=== PATIENT | male | born 1970 | race Caucasian/White ===

== ENCOUNTER 2018-01-31 19:07 | Emergency (ER) | payer OTHER, BC ==
[2018-01-31 19:15] VITALS: BP 156/92; PULSE 87; TEMP 99; BMI 28.5
--- NOTE | 2018-01-31 19:49 | PDOC ---
History of Present Illness - General Chief Complaint: Injury Stated Complaint: HAND INJURY Time Seen by Provider: 01/31/18 19:28 - History of Present Illness Initial Comments: Healthy 47-year-old male without any comorbidities presents for evaluation of right wrist pain. He states he was putting up a wall to wall fell on his wrist he describes a hyperextension type injury. Since the injury his wrist is been increasingly painful. He points to the radial aspect of his right wrist as the area of his discomfort pain is described as achy exacerbated with motion relieved with rest free of radiation no prior problems with the right wrist. 01/31/18 19:47 Past History - Past Medical History Allergies/Adverse Reactions: Allergies Allergy/AdvReac Type Severity Reaction Status Date / Time No Known Allergies Allergy Verified 06/16/16 10:30 Home Medications: Ambulatory Orders NK [No Known Home Medication] 01/31/18 COPD: No - Suicide/Smoking/Psychosocial Hx Smoking History: Current some day smoker Number of Cigarettes Smoked Daily: 5 Information on smoking cessation initiated: No 'Breaking Loose' booklet given: 06/19/15 Hx Alcohol Use: Yes (2x a week) Drug/Substance Use Hx: No Substance Use Type: None Review of Systems - Review of Systems Musculoskeletal: Yes: Joint Pain All Other Systems: Reviewed and Negative *Physical Exam - Vital Signs Last Vital Signs Temp Pulse Resp BP Pulse Ox 99 F 87 18 156/92 99 01/31/18 19:13 01/31/18 19:13 01/31/18 19:13 01/31/18 19:13 01/31/18 19:13 - Physical Exam Comments: Right wrist skin color and temperature within normal limits is mild swelling. Decreased range of motion. Tenderness over the distal radius. Metal Coater strength is decreased. He has no gross sensorimotor deficits. He is neurovascularly intact. 01/31/18 19:48 ED Treatment Course - RADIOLOGY Radiology Studies Ordered: Category Date Time Status WRIST W/HAND-RIGHT* [RAD] Stat Radiology 01/31/18 19:45 Ordered Medical Decision Making - Medical Decision Making Possible right wrist fracture x-rays pending. 01/31/18 19:49 01/31/18 20:15 Is a scaphoid fracture at the distal pole. He was placed in a thumb spica splint. He is neurovascular intact post-application. *DC/Admit/Observation/Transfer Diagnosis at time of Disposition: Fracture of scaphoid - Discharge Dispostion Disposition: HOME Condition at time of disposition: Stable Decision to Admit order: No - Referrals Referrals: ON STAFF,NOT [Primary Care Provider] - Margarito Campbell MD [Staff Physician] - - Patient Instructions Printed Discharge Instructions: Wrist Fracture Additional Instructions: Please treat the splint like a cast and keep it clean and dry. You must follow- up with hand surgery within the next 1-2 days. Return to the emergency room if your symptoms worsen or go unresolved. Keep the splint on until you are seen by hand surgery. - Post Discharge Activity
== END 2018-01-31 20:37 | disposition home or self-care (01) ==
LOC: JERFT 19:07
PROC: 2W3CX1Z Immobilization of Right Lower Arm using Splint (ICD-10-PCS; principal; 2018-01-31)
DX: S62.014A Nondisplaced fracture of distal pole of navicular [scaphoid] bone of right wrist, initial encounter for closed fracture (principal); W20.1XXA Struck by object due to collapse of building, initial encounter; Y93.H3 Activity, building and construction; Y92.61 Building [any] under construction as the place of occurrence of the external cause; Y99.0 Civilian activity done for income or pay
CPT/HCPCS: 73110-TC-RT-FY; 73130-TC-RT-FY; 99281-25

== ENCOUNTER → 2018-03-01 | Day surgery (SDC) | payer BC, OTHER ==
[2018-02-25 14:29] VITALS: BMI 29.2
[~2018-03-01] MED LIST: DEXAMETHASONE SOD PHOSPHATE 4 MG/1 ML VIAL ONE; DEXAMETHASONE SOD PHOSPHATE/PF 10 MG/ML SDV ONE; KETOROLAC TROMETHAMINE 30 MG/1 ML VIAL ONE; LIDOCAINE HCL 2% JELLY (5 ML/TUBE) ONE; LIDOCAINE HCL/PF 2% SDV 5ML VIAL ONE; MIDAZOLAM HCL 2 MG/2 ML SINGLE DOSE VIAL ONE; ONDANSETRON 4 MG/2 ML VIAL IVPUSH PRN; ONDANSETRON 4 MG/2 ML VIAL ONE; PROMETHAZINE HCL 25 MG/1 ML VIAL IVPB PRN; PROPOFOL 20 ML ONE; ROPIVACAINE HCL 0.5% 30ML VIAL ONE; SUCCINYLCHOLINE CHLORIDE 200 MG/10 ML VIAL ONE; ceFAZolin SODIUM 1 GM VIAL ONE
[2018-03-01 11:12] VITALS: BP 142/79; PULSE 79; TEMP 98.2
--- NOTE | 2018-03-03 09:50 | OP ---
DATE OF OPERATION: 03/01/2018 PREOPERATIVE DIAGNOSES: 1. Right triangular fibrocartilage complex tear. 2. Right scapholunate ligament tear. POSTOPERATIVE DIAGNOSES: 1. Right triangular fibrocartilage complex tear. 2. Right scapholunate ligament tear. OPERATIVE PROCEDURE: 1. Right wrist operative arthroscopy with debridement and triangular fibrocartilage complex debridement. 2. Right wrist open scapholunate ligament repair/reconstruction/capsulorrhaphy. SURGEON: Burke Steiner MD ANESTHESIA: Regional and general. COMPLICATIONS: None. ESTIMATED BLOOD LOSS: Minimal. INDICATION FOR PROCEDURE: The patient is a 47-year-old male with the above finding, indicated for operative treatment. Risks, benefits, and alternatives were discussed with the patient at length. Proper informed consent was obtained. PROCEDURE: After proper identification of the patient and the correct operative site, patient was brought to the operating room and placed supine on the operative table. Prominences were well padded. Regional and general anesthesia was given. Right upper extremity was prepped and draped in usual sterile fashion. Well-padded tourniquet was placed as well as sterile prep. Esmarch bandage to exsanguinate the right upper extremity. Tourniquet was inflated to 250 mmHg. Right upper extremity was placed into the arthroscopy traction tower with 10 pounds of in-line traction with all points of contact well padded. and portals were established with skin incision only and blunt dissection down to the joint capsule. Next, 2.7-mm gravity inflow arthroscope was placed, and the joint was observed. Minimal degenerative changes were noted. Several areas had small crystalline plaques consistent with his diagnosis of gout. These were debrided. Minimal degenerative changes were noted. Scapholunate ligament was found to be nearly completely torn with significant gaping and drive-through sign. There did appear to be some ligament left for repair. Lunotriquetral ligament was intact. TFCC had a partial tear, radial side, and this was debrided with mechanical shaver. Synovitis was debrided as well. No other tears were noted. Volar radiocarpal ligaments were intact. Arthroscope was then removed from the wrist, and a longitudinal incision was made over the dorsal aspect of the wrist. Incision was taken sharply through the skin, with blunt and sharp dissection through subcutaneous tissues. The extensor pollicis longus was transposed, and the retinaculum was elevated both radially and ulnarly beneath the compartments. Dorsal wrist capsule was observed and found to be intact. A ligament-sparing capsulotomy was then performed in a V shape between the dorsal intercarpal and dorsal radiocarpal ligaments. The scapholunate ligament was then observed and found to be torn approximately 75% with the remaining ligament attenuated. The remaining ligament was all proximal and volar. Therefore, a ligament repair and reconstruction was indicated. This was performed by placing 2 K-wires into the scaphoid and then also into the lunate and reducing the scapholunate gap. This was accomplished without difficulty. I then placed guidewires to do an Arthrex internal-brace dorsal stabilization. The small PushLock anchor was then placed into the base of the scaphoid, and with the scaphoid and lunate reduced with the K-wires as joysticks, the fibertape was used to augment the dorsal scapholunate area. This was done by placing another PushLock anchor into the dorsum of the lunate. A final augmentation was performed by then placing the same FiberTape suture to the dorsum of the distal scaphoid. Any remaining ligament was then repaired within this construct. The wrist was taken through range of motion, and good stability of the scapholunate interval was achieved. X-rays were taken to confirm proper placement. Wound was irrigated with saline. Capsule was repaired with 3-0 Vicryl suture. Retinaculum was repaired with 4-0 Vicryl suture with the extensor pollicis longus transposed, and the skin was repaired in layers using 4-0 Vicryl and 4-0 nylon suture. Sterile dressings and a splint were placed. Patient was reversed from anesthesia and brought to Recovery in stable condition. He tolerated the procedure well. Errol [id number]
== END | disposition home or self-care (01) ==
LOC: FASU 05:59
PROVIDERS: ATTEND Orthopaedic Surgery Hand Surgery
PROC: 0RBN4ZZ Excision of Right Wrist Joint, Percutaneous Endoscopic Approach (ICD-10-PCS; principal; 2018-03-01 07:57)
PROC: 0MQ54ZZ Repair Right Wrist Bursa and Ligament, Percutaneous Endoscopic Approach (ICD-10-PCS; 2018-03-01 07:57)
DX: S63.591A Other specified sprain of right wrist, initial encounter (principal); S63.511A Sprain of carpal joint of right wrist, initial encounter; X58.XXXA Exposure to other specified factors, initial encounter; Y93.9 Activity, unspecified; Y92.9 Unspecified place or not applicable
CPT/HCPCS: 73110-TC-RT-FY; 94760

== ENCOUNTER 2022-07-20 07:56 | Day surgery (SDC) | payer BC ==
[2022-07-16 11:49] VITALS: BMI 28.0
[2022-07-20] MEDS ORDERED: LIDOCAINE HCL/PF 2% SDV 5ML VIAL ONE (08:06)
[2022-07-20] MEDS ORDERED: PROPOFOL 120 ML ONE (08:07)
[2022-07-20 08:12] VITALS: RESP 20
[2022-07-20 09:27] VITALS: TEMP 97
[2022-07-20 09:50] VITALS: BP 102/60; PULSE 62
== END 2022-07-20 10:40 | disposition home or self-care (01) ==
LOC: FASU-ENDO 07:56
PROVIDERS: ATTEND Internal Medicine Gastroenterology
PROC: 0DBN8ZX Excision of Sigmoid Colon, Via Natural or Artificial Opening Endoscopic, Diagnostic (ICD-10-PCS; 2022-07-20)
PROC: 0DBP8ZX Excision of Rectum, Via Natural or Artificial Opening Endoscopic, Diagnostic (ICD-10-PCS; 2022-07-20)
PROC: 0DBK8ZX Excision of Ascending Colon, Via Natural or Artificial Opening Endoscopic, Diagnostic (ICD-10-PCS; principal; 2022-07-20 08:41)
DX: Z12.11 Encounter for screening for malignant neoplasm of colon (principal); D12.2 Benign neoplasm of ascending colon; D12.7 Benign neoplasm of rectosigmoid junction; D12.8 Benign neoplasm of rectum; K63.5 Polyp of colon; K57.30 Diverticulosis of large intestine without perforation or abscess without bleeding
CPT/HCPCS: 88305-TC